=== PATIENT | male | born 1935 | race Caucasian/White ===

== ENCOUNTER 2025-02-07 09:03 | Outpatient (REF) | payer MEDICARE, SELFPAY ==
--- NOTE | ~2025-02-07 | XR_ITS ---
CLINICAL HISTORY: R05.3 - Chronic cough Chest Radiographs, 2 views Comparison: None available Findings: Cardiomegaly status post TAVR. Normal mediastinal contours. No pneumothorax. Question interstitial prominence with faint bilateral opacity. No pleural effusion. Normal upper abdomen. No acute fracture. Impression: Suspect mild pulmonary edema. Multifocal infection is considered less likely. This document has been electronically signed by: Rebecca Doll MD on 02/07/2025 22:16:50
== END 2025-02-07 09:04 | disposition home or self-care (01) ==
LOC: HO.XRAY 09:03
PROVIDERS: PCP Internal Medicine; Visit Provider Nurse Practitioner Family
DX: J44.9 Chronic obstructive pulmonary disease, unspecified (principal); R06.09 Other forms of dyspnea; R05.3 Chronic cough; I48.91 Unspecified atrial fibrillation; Z79.01 Long term (current) use of anticoagulants; Z87.891 Personal history of nicotine dependence
CPT/HCPCS: 71046; 99202

== ENCOUNTER 2025-02-07 09:03 | Outpatient (AMB) | payer MEDICARE, SELFPAY ==
--- OUTSIDE RECORDS SUMMARY | 2025-02-04 23:59 | XMS_ITS | Continuity of Care Document ---
Author Organization [facility] Adult Address [address] [place] [id number]- Care Team Providers Care Auricular Acupuncturist Name Role Phone Morgan WISE, [place] [facility] Primary Care Physician Encounter [facility] Date(s): 01/05/25 - 02/04/25 [facility] Adult [address] [place] [id number] Encounter Type: Triage Allergies, Adverse Reactions, Alerts Substance Criticality Severity Reaction Reaction Severity Status Latex Active Immunizations Given and Recorded Vaccine Date Status Refusal Reason zoster vaccine, inactivated 12/25/24 Recorded RSV vaccine preF3, recombinant 12/25/24 Recorded influenza virus vaccine, inactivated 06/21/24 Give n influenza virus vaccine, inactivated 05/29/23 Ascencion rded influenza virus vaccine, inactivated 1 05/21/22 Gi melissa influenza virus vaccine, inactivated 05/10/21 Give n influenza virus vaccine, inactivated 07/03/19 Ascencion rded influenza virus vaccine, inactivated 05/21/10 Ascencion rded tetanus/diphtheria/pertussis, acel(Tdap) 2 10/29/23 Given pneumococcal 20-valent conjugate vaccine 05/29/23 Recorded SARS-CoV-2(COVID-19)mRNA-LNP vac([id number]) 05/29/23 Recorded [id number] 12y+ bivalent booster vax 3 06/11/22 Given SARS-CoV-2 (COVID-19) mRNA BNT-162b2 vac 05/10/21 Given SARS-CoV-2 (COVID-19) mRNA BNT-162b2 vac 10/11/20 Recorded SARS-CoV-2 (COVID-19) mRNA BNT-162b2 vac 09/20/20 Recorded 1Result Comment: [id number] 2Result Comment: [facility] [id number] 3Result Comment: [facility]# [id number] Medications allopurinol 100 mg oral tablet 100 mg, By Mouth, Daily, # 60 tablet, Refills 0, Tot. Refills 0, Maintenance, 07/04/24 9:56:00 AM EST, Route to Pharmacy Electronically, [facility], Partial fill upon patient request if the prescription is for a schedule II opioid drug., 175, cm, 07/04/24 3:48:00 EST, Height, 105.1, kg, 06/20/24 23:26:00 EST, Dry Weight Start Date: 07/04/24 Stop Date: 09/02/24 Status: Ordered Quantity: 60.0 Unit: tablet Repeat number: 1 CPAP Machine See Instructions, # 1 each, Maintenance, PREVIOUS MACHINE NO LONGER FUNCTIONAL AUTO CPAP 10-12 CM H2O WITH HEATED HUMIDFICATION AND COMPLIANCE DATA AND RESIDUAL AHI FOLLOWED DX G47.33M ANA 99 RELIABLE RESPIRATORY [phone], 04/01/22 4:00:00 PM EDT, Supply Start Date: 04/01/22 Status: Ordered Quantity: 1.0 Unit: each Repeat number: 1 CPAP Equipment See Instructions, # 1 each, Refills 11, Tot. Refills 11, Maintenance, MASK TO FIT, TUBING, FILTERS,HEADGEAR, CHINSTRAP, WATER CHAMBER DX G47.33 ANA 99 RELIABLE RESPIRATORY [phone], 04/01/22 4:00:00 PM EDT, Supply Start Date: 04/01/22 Status: Ordered Quantity: 1.0 Unit: each Repeat number: 12 Eliquis 2.5 mg oral tablet 1 tablet = 2.5 mg, By Mouth, 2 times a day Start Date: 09/05/21 Status: Ordered Repeat number: 1 Fish Oil = 1,000 mg, By Mouth, Daily, 0 Refills, Maintenance, 02/27/21 3:16:00 PM EDT, Partial fill upon patient request if the prescription is for a schedule II opioid drug. Start Date: 02/27/21 Status: Ordered Repeat number: 1 metolazone 5 mg oral tablet 5 mg, 1, tablet, By Mouth, Daily, PRN, for weight gain >3 Lbs in a day, Refills 0, Maintenance, Other, 01/27/24 11:30:00 AM EDT, Partial fill upon patient request if the prescription is for a schedule II opioid drug. Start Date: 01/27/24 Status: Ordered Repeat number: 1 Metoprolol Succinate ER 50 mg oral tablet, extended release 2 tablet = 100 mg, By Mouth, Daily Start Date: 02/27/21 Status: Ordered Repeat number: 1 Multivitamin 1 tablet, By Mouth, Daily, 0 Refills, Maintenance, 02/27/21 3:16:00 PM EDT, Partial fill upon patient request if the prescription is for a schedule II opioid drug. Start Date: 02/27/21 Status: Ordered Repeat number: 1 simvastatin 20 mg oral tablet 20 mg, 1, tablet, By Mouth, Daily at bedtime, # 90 tablet, Refills 1, Tot. Refills 1, Maintenance, 08/17/24 10:44:00 AM EST, Route to Pharmacy Electronically, [facility] #[id number], Partial fill upon patient request if the prescription is for a schedule II opioid drug., 175, cm, 07/21/24 8:13:00 EST, Height, 105.1, kg, 06/20/24 23:26:00 EST, Dry Weight Start Date: 08/17/24 Stop Date: 02/13/25 Status: Ordered Quantity: 90.0 Unit: tablet Repeat number: 2 terazosin 1 mg oral capsule 1 mg, 1, capsule, By Mouth, Daily at bedtime, Refills 0, Maintenance, 01/25/22 1:58:00 PM EDT, Partial fill upon patient request if the prescription is for a schedule II opioid drug. Start Date: 01/25/22 Status: Ordered Repeat number: 1 torsemide 20 mg oral tablet 2 tablet = 40 mg, By Mouth, 2 times a day, 0 Refills, Maintenance, 06/21/24 3:24:00 PM EST, Partialfill upon patient request if the prescription is for a schedule II opioid drug. Start Date: 06/21/24 Status: Ordered Repeat number: 1 Vitamin C = 250 mg, By Mouth, Daily, 0 Refills, Maintenance, 02/27/21 3:16:00 PM EDT, Partial fill upon patient request if the prescription is for a schedule II opioid drug. Start Date: 02/27/21 Status: Ordered Repeat number: 1 Vitamin D3 oral tablet 1 tablet = 10 mcg, By Mouth, Daily, 0 Refills, Maintenance, 10/20/24 12:13:00 PM EDT, Partial fill upon patient request if the prescription is for a schedule II opioid drug. Start Date: 10/20/24 Status: Ordered Repeat number: 1 Walker See Instructions, # 1 each, Maintenance, USE DIRECTED. 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 Sex Sex Representation Male (finding) Patient Care team information Care Team Personnel Name: Azul Rodriguez RN Position: [facility] makeup artistry instructor Member Role: Investor Relations Coordinator Name: Becki Meredith RN Position: [facility] SN RN Member Role: Primary Care Nurse Name: Analy Gupta RN Position: [facility] RN Member Role: Primary Care Nurse Name: Cheryl Morgan MD Position: [facility] Renal MD Member Role: Lifetime Consulting Physician Address: [address] [place] [address] [address] [facility] [place] [address]- [employer]Lo: Name: Elan Dubois RN Position: S RN Member Role: Primary Care Nurse Name: Jamee Izaguirre RN Position: S RN Member Role: Primary Care Nurse Name: Misa Schuster RN Position: S RN Member Role: Primary Care Nurse Name: Flaivo Silva RN Position: S RN Member Role: Primary Care Nurse Name: Beck Erickson RN Position: [facility] RN Member Role: Primary Care Nurse Name: Luis GUERRERO, Anthony Serrato Position: [facility] RN Member Role: Primary Care Nurse Name: Kusum Benitez RN Position: [facility] RN Member Role: Primary Care Nurse Name: Chelsy Mora MD Position: [facility] Physician - Primary Care Member Role: PCP Address: [address] [place] [phone] [id number]: Name: Jozef Whyte MD Position: [facility] Outreach Member Role: Lifetime Consulting Physician Address: [address] [facility] [place], [place] [address] Telecom: Name: Sami Patino MD Position: [facility] Renal MD Member Role: Lifetime Consulting Physician Address: [address] [facility] [address] [facility] [address] Telecom: Name: Jennifer Anderson RN Position: [facility] RN Member Role: Primary Care Nurse Name: Serina Myrick Position: [facility] Hospital Integration Project Manager Member Role: Primary Care Nurse Name: Aleksandar Eric RN Position: [facility] RN Member Role: Primary Care Nurse Name: Dewayne Garcias MD Position: [facility] Renal MD Member Role: Lifetime Consulting Physician Address: [address] [facility] [place], [place] [address] Telecom: Name: Patty Walker RN Position: [facility] RN Member Role: Primary Care Nurse Name: Holly Roca RN Position: [facility] RN Member Role: Primary Care Nurse Name: Nneka Steel RN Position: [facility] RN Member Role: Primary Care Nurse Name: Patricia Gonzalez RN Position: [facility] RN Member Role: Primary Care Nurse Care Team Related Persons Name: MAGDACHAMP ORTIZ Name: DOM HARDY Insurance Providers Guarantor name: SANDY Health Plan Information #: 1 Payer: MEDICARE B Payer Identifier: SANDY Member Number: [id number] Group Number: SANDY Subscriber Identifier: [id number] Relationship to Subscriber: self Coverage Type: NA Coverage Verification Date: SANDY Telecom: NA Address: Health Plan Information #: 2 Payer: MEDEX SECONDARY ONLY Payer Identifier: SANDY Member Number: [id number] Group Number: SANDY Subscriber Identifier: [id number] Relationship to Subscriber: self Coverage Type: Medicare Other Coverage Verification Date: SANDY Telecom: NA Address:
--- NOTE | 2025-02-07 09:13 | A.OFFVIS_ITS ---
Vital Signs 02/07/25 09:18 Height 5 ft 8 in Weight 248 lb 0.321 oz BMI 37.7 BP 110/70 Blood Pressure Location Rt brachial Position Sitting Pulse 125 H Pulse Source Pulse Oximeter Pulse Oximetry (%) 97 Oxygen Delivery Method Room Air Intake Visit Reasons: Dyspnea on Exertion Medical Assisting Instructor Required: No Allergies No Known Allergies Allergy (Verified 02/07/25 09:21) HPI HPI Dyspnea on Exertion: Details: Aubrey is a pleasant 89-year-old male, former 10 pack year smoker, quit 30+ years ago with underlying hypertension, hyperlipidemia, severe aortic stenosis status post TAVR 2020, AMANDA on CPAP (PCP), atrial fibrillation on Eliquis and history of chronic hypoxic respiratory failure secondary to CHF 2023. He was referred by [facility] for pulmonary evaluation for ongoing dyspnea. He was recently started on metalozone in addition to lasix and has noticed a decreasing trend in weight, however dyspnea continues as well as occasional dry cough. He reports symptoms have progressively worsened over the last few years. He denies prior h/o asthma/ COPD however recently had PFT which revealed mild obstructive with moderate restrictive defect and moderate decrease in diffusion capacity. Prior CXR 06/2024 revealed perihilar interstitial opacity consistent with mild edema. He denies any history of recurrent respiratory infections, such as bronchitis or pneumonia, and has never required home oxygen therapy. He denies any occupational exposures. He denies any seasonal allergies. He denies any pertinent family history. ON LICENSE OF [facility] Social History (Updated 02/07/25 @ 09:26 by Nori Whitehead [facility]) Patient Tobacco Use Status: Former Tobacco user Review of Systems Const Denies chills, Denies excessive sweating, Denies fever(s), Denies headache(s) and Denies night sweats Eyes Denies dry eyes, Denies irritation and Denies itchy eyes ENT Reports Normal hearing present, Denies headache(s), Denies nasal congestion, Denies nasal discharge, Denies post nasal drip and Denies sore throat Card Denies chest pain, Denies chest pain at rest, Denies chest pain with activity, Denies claudication, Denies leg edema, Denies orthopnea and Denies paroxysmal nocturnal dyspnea Resp Denies chest congestion, Denies excessive phlegm production, Denies pain on inspiration, Denies pain with cough, Denies stridor and Denies wheezing Musc Denies myalgias Neuro Reports Normal hearing present and Denies headache(s) Endo Denies excessive sweating Brando/Lymph Denies lymphadenopathy Aller/Immun Denies itchy eyes, Denies seasonal rhinorrhea and Denies wheezing Physical Exam Vital Signs: Last Vital Signs Pulse 125 H 02/07/25 09:18 BP 110/70 02/07/25 09:18 Pulse Ox 97 02/07/25 09:18 Oxygen Delivery Method Room Air 02/07/25 09:18 BMI result Body Mass Index 37.7 Const General: cooperative, healthy appearing, comfortable, no acute distress, well developed and alert Nutritional Appearance: obese Orientation/consciousness: patient oriented x3 Limitations: no limitations HEENT Head: Yes normal to inspection, Yes normocephalic and Yes atraumatic Ears: hearing grossly normal bilaterally and external ears normal Eyes General: appearance normal, both eyes and all related structures Eyelids: Yes eyelids normal Sclerae: sclerae normal EOM: EOMs intact bilaterally Neck Neck: Yes normal visual inspection and Yes no lymphadenopathy Lymphatic: no lymphadenopathy noted Chest Chest palpation & inspection: normal inspection of the chest Resp Effort & Inspection: normal respiratory effort, able to speak in complete sentences, no audible wheezes, no cough, no stridor, not tachypneic, no tripod positioning and no use of accessory muscles Auscultation: clear to auscultation bilaterally Cardio Jugular venous distension: no JVD Rate: tachycardic Rhythm: abnormal rhythm Skin Other: warm, dry General skin exam: no rashes or lesions noted Neuro General: patient oriented x3 Cranial nerves: Yes Normal hearing present Cognition (Neuro): normal cognition Gait exam (Neuro): Normal gait present Extrem General: Yes normal to inspection, Yes capillary refill normal, Yes no clubbing, cyanosis or edema and Yes no pedal edema Psych Appearance: grossly normal and well kempt Speech and movement: Normal speech and movement present and Clear speech present Affect: normal affect Attitude: cooperative Thought process: Normal thought process present Thought content: Normal thought content present Insight: Good insight present (Psych) Judgement: Good judgement present (Psych) Results Reviewed Results Reviewed: RESULT: Chest Portable Chest Portable Reason: Shortness of Breath; Clinical Question(s): Pulmonary Edema COMPARISON: 06/24/2024 FINDINGS: LINES AND TUBES: None. LUNGS AND PLEURA: Low lung volumes with mild basilar atelectasis. Perihilar interstitial opacity consistent with mild edema. No definite pleural effusion. No pneumothorax. HEART, MEDIASTINUM AND IESHA: Heart is at the upper limits of normal for size. Normal mediastinal and hilar contour. BONES AND SOFT TISSUES: No acute abnormality. IMPRESSION: Perihilar interstitial opacity consistent with mild edema. WSN: [id number] Ordering Physician: Sherry Sibley Reason For Exam Shortness of Breath Signature Line Dictated By: Lm Estrada MD Dictated Date/Time: 06/26/24 11:33 p Reviewed By: Lm Estrada MD Signed By: Lm Estrada MD Signed Date/Time: 06/26/24 11:33 pm Transcribed By: DANIELA Assessment & Plan Assessment & Plan (1) COPD (chronic obstructive pulmonary disease): Code(s): J44.9 - Chronic obstructive pulmonary disease, unspecified Category: Medical (2) Chronic cough: Code(s): R05.3 - Chronic cough Category: Medical Plan Reviewed PFT with Aubrey revealing mild obstructive defect, will start on ICS. Discussed importance of good oral hygiene to prevent thrush. Due to the patient's history of atrial fibrillation and elevated heart rate, a combination inhaler with a long-acting beta-agonist was avoided to prevent potential exacerbation of cardiac symptoms. A repeat chest X-ray is recommended to assess current lung status and ensure resolution of previously noted fluid accumulation. On examination patient with irregular rate and tachycardic, asymptomatic however reached out to PVC who will contact patient today to triage and further assess patient. Reviewed with daughter, via telephone after Aubrey left office, if PVC does not contact today, consider emergent evaluation at the ED. All questions were answered and patient is in agreement of plan. Will follow up in 6-8 weeks or sooner if needed. Orders: Orders XR chest 2V Today R05.3 - Chronic cough Medications: New fluticasone furoate 100 mcg/actuation 1 inh inhalation DAILY 30 ea 3RF Coding Level of Care Code New Pt Level 4 (94485) Diagnoses COPD (chronic obstructive pulmonary disease) J44.9 Chronic cough R05.3
[2025-02-07 09:18] VITALS: BP 110/70; PULSE 125; O2SAT 97; BMI 37.7
--- OUTSIDE RECORDS SUMMARY | 2025-02-07 09:25 | XMS_ITS | Continuity of Care Document ---
Author Organization [facility]. If a dditional information is needed, contact Health Information Management at [phone] Address [address] [place] [address] Phone Care Team Providers Care Yard Jockey Name Role Phone Unavailable Unavailable Unavailable Unavailable Unavailable Unavailable Unavailable Unavailable Unavailable Unavailable Unavailable Unavailable Unavailable Unavailable Unavailable Problems Pneumonia Onset:22-Oct-2022 Ashish Estrada MD Functional Status Functional finding 22-Oct-2022 Allergies and Adverse Reactions latex(Allergy) Onset: 21-Oct-2022 Reaction:RASH Medications azithromycin 500 MG Oral Tab let;500 MILLIGRAM ORAL DAILY Start:24-Oct-2022 Comments:500 MG PO DAILY cefuroxime 500 MG Oral Table t;500 MILLIGRAM ORAL BID Start:24-Oct-2022 Comments:500 MG PO BID allopurinol 300 MG Oral Tabl et [Zyloprim];300 MILLIGRAM ORAL DAILY Start:22-Oct-2022 Comments:300 MG PO DAILY simvastatin 20 MG Oral Table t [Zocor];20 MILLIGRAM ORAL BEDTIME Start:22-Oct-2022 Comments:20 MG PO BEDTIME apixaban 2.5 MG Oral Tablet [Eliquis];2.5 MILLIGRAM ORAL BID Start:22-Oct-2022 Comments:2.5 MG PO BID furosemide 40 MG Oral Tablet ;40 MILLIGRAM ORAL DAILY Start:22-Oct-2022 Comments:40 MG PO DAILY amLODIPine 5 MG Oral Tablet; 5 MILLIGRAM ORAL BID Start:22-Oct-2022 Comments:5 MG PO BID terazosin 1 MG Oral Capsule; 1 MILLIGRAM ORAL BEDTIME Start:22-Oct-2022 Comments:1 MG PO BEDTIME clopidogrel 75 MG Oral Table t;75 MILLIGRAM ORAL DAILY Start:22-Oct-2022 Status:Discontinued Comments:75 MG PO DAILY lisinopril 40 MG Oral Tablet [Zestril];30 MILLIGRAM ORAL DAILY Start:22-Oct-2022 Comments:30 MG PO DAILY 24 HR metoprolol succinate 5 0 MG Extended Release Oral Tablet [Toprol];75 MILLIGRAM ORAL DAILY Start:22-Oct-2022 Comments:75 MG PO DAILY Social History Smoking Status Ex-smoker Recorded: 22-Oct-2022
--- OUTSIDE RECORDS SUMMARY | 2025-02-07 09:26 | XMS_ITS | Clinical Summary ---
Author Organization [facility] Address [address] [place] [phone] Phone Care Team Providers Care Polishing Machine Tender Name Role Phone Chelsy Mora MD Primary Care Provider Allergies Active Allergy Reactions Criticality Noted Date Comments Latex 12/03/2021 Medications apixaban (Eliquis) 2.5 MG tablet Take 2.5 mg by mouth in the morning and 2.5 mg in the evening. Active terazosin (HYTRIN) 1 MG capsule Take 1 mg by mouth at bed time 06/10/2022 Active metoprolol succinate XL (TOPROL XL) 50 MG 24 hr tablet TAKE 1.5 TABLETS BY MOUTH EVERY DAY 135 tablet 4 08/05/2023 Active simvastatin (ZOCOR) 20 MG tablet TAKE 1 TABLET BY MOUTH EVERY DAY IN THE EVENING 90 tablet 6 02/29/2024 Active amLODIPine (NORVASC) 5 MG tabletIndicatio ns:Stage 3 chronic kidney disease, not otherwise specified (HCC),Hypertens ion Take 1 tablet (5 mg total) by mouth 1 (one) time each day 90 tablet 10/20/2024 Active acetaminophen (TYLENOL) 500 MG tablet Take 500 mg by mouth every 6 (six) hours if needed for mild pain Active allopurinol (ZYLOPRIM) 100 MG tablet Take 100 mg by mouth 1 (one) time each day Active Quincy-3 Fatty Acids (Fish Oil) 1000 MG capsule delayed-release Take 1,000 mg by mouth 1 (one) time each day Active Ascorbic Acid (vitamin C) 500 MG tablet Take 500 mg by mouth 1 (one) time each day Active Cholecalciferol (Vitamin D) 25 MCG (1000 UT) tablet Take by mouth Active metOLazone 5 MG tabletIndicatio ns:Edema Take 5 mg by mouth 1 (one) time each day if needed (for weight gain >3 pounds in a day) Active torsemide (DEMADEX) 20 MG tablet TAKE 2 TABLETS (40 MG TOTAL) BY MOUTH IN THE MORNING AND 2 TABLETS (40 MG TOTAL) IN THE EVENING. 360 tablet 1 11/22/2024 Active Active Problems Problem Noted Date Diagnosed Date Acute kidney failure with tubular necrosis 11/06 Secondary hyperparathyroidism of renal origin Vitamin D deficiency, not otherwise specified Dyslipidemia 12/03/2021 Gout 12/03/2021 Obese class II 12/03/2021 Obstructive sleep apnea syndrome 12/03/2021 Prediabetes 12/03/2021 Proteinuria 12/03/2021 Severe aortic valve stenosis 12/03/2021 Hypertension 11/16/2021 Stage 3 chronic kidney disease, not otherwise sp ecified 11/16/2021 Overview (06/24/2022): Per chart review meets GFR criteria Congestive heart failure 11/16/2021 Paroxysmal atrial fibrillation 11/16/2021 Severe obesity 11/16/2021 Encounters Date Type Department Care Team Description 11/19/2024 Refill [facility] [address] [place] [address] Leonides Morgan MD from Last 3 Months Immunizations Immunization Administration Dates Next Due Influenza Split High Dose Preservative Free IM 04/04/2014 Influenza, Unspecified 05/29/2023,05/21/2022 Pfizer SARS-COV-2 05/29/2023, 2,05/10/2021,2020,09/20/2020 Pneumococcal Conjugate 05/29/2023 SARS-CoV-2, Unspecified 06/11/2022 Social History Tobacco Use Types Packs/Day Years Used Date Smoking Tobacco: Never Smokeless Tobacco: Former Tobacco Cessation:Counseling Given: Not Answered Alcohol Use Standard Drinks/Week Comments No 0 (1 standard drink = 0.6 oz pur e alcohol) Sex and Gender Information Value Date Recorded Sex Assigned at Not on file Legal Sex Male 5:06 PM EST Gender Identity Not on file Sexual Orientation Not on file Last Filed Vital Signs Vital Sign Reading Time Taken Comments Blood Pressure 116/70 10/26/2024 11:09 AM EDT Pulse 87 10/26/2024 11:09 AM EDT Temperature - - Respiratory Rate - - Oxygen Saturation 95% 08/25/2023 2:28 PM EST Inhaled Oxygen Concentration - - Weight 110 kg (242 lb) 10/26/2024 11:09 AM EDT Height 172.7 cm (5' 8 ) 12/03/2021 2:31 PM EDT Body Mass Index 36.8 12/03/2021 2:31 PM EDT Plan of Treatment Upcoming Encounters Date Type Department Care Team (Late st Contact Info) Description 03/04/2025 Orders Only [facility] [address] [phone] Tricia Eric ARNP [address] [phone] Stage 3 chronic kidney disease, not otherwise specified (HCC); Hypertension; Proteinuria, not otherwise specified; Vitamin D deficiency, not otherwise specified 04/27/2025 1:30 PM EDT Office Visit [facility] [address] [phone] Leonides Morgan MD [address] [address] Health Maintenance Due Date Last Done Comments Pneumococcal Vaccine: 50+ Years (1 of 2 - PCV) 11/01/1954 05/29/2023 Influenza Vaccine (#1) 2025 3, 05/21/2022, 04/04/2014 Pneumococcal Vaccine: Peds (0 to 5 Years) and At-Risk Patients (6 to 49 Years) Discontinued 05/29/2023 Hepatitis B Vaccine Aged Out No longe r eligible based on patient's age to complete this topic Insurance Medicare [facility] Medicare [facility] Care Teams Polishing Machine Tender Relationship Specialty Start Date End Date Chelsy Mora MD [address] PCP - General Internal Medicine 12/03/21
--- OUTSIDE RECORDS SUMMARY | 2025-02-07 09:26 | XMS_ITS | Encounter Summary ---
Author Organization [facility] Address [address] [place] [address] Care Team Providers Care Weaver Axminster Name Role Phone Chelsy Mora MD Primary Care Provider Encounter Details Date Type Department Care Team (Late st Contact Info) Description 07/06/2024 Lab Requisition [facility] - Main Lab [address] [facility] [place] [address] Allison Mitchell MD [address] [place] [id number] Chronic kidney disease, stage 3 unspecified (CMS/HCC V24, CMS/HCC V28); Other retirement (current) drug therapy; Gout, unspecified Social History Tobacco Use Types Packs/Day Years Used Date Smoking Tobacco: Former Cigarettes Smokeless Tobacco: Never Alcohol Use Standard Drinks/Week Comments Not Currently 0 (1 standard drink = 0.6 oz pur e alcohol) Sex and Gender Information Value Date Recorded Sex Assigned at Not on file Legal Sex Male 8:20 AM EST Gender Identity Not on file Sexual Orientation Not on file documented as of this encounter Plan of Treatment Not on file documented as of this encounter Procedures Procedure Name Priority Date/Time Associated Diagnosis Comments COMPLETE BLOOD COUNT Routine 07/06/2024 5:13 AM EST Chronic kidney disease, stage 3 unspecified (CMS/HCC) Other retirement (current) drug therapy Gout, unspecified HEMOGLOBIN A1C Routine 07/06/2024 5:13 AM EST Chronic kidney disease, stage 3 unspecified (CMS/HCC) Other retirement (current) drug therapy Gout, unspecified BASIC METABOLIC PANEL Routine 07/06/2024 5:13 AM EST Chronic kidney disease, stage 3 unspecified (CMS/HCC) Other retirement (current) drug therapy Gout, unspecified documented in this encounter Results * (ABNORMAL) Hemoglobin A1c (07/06/2024 5:13 AM EST) Hemoglobin A1C 6.5(H) <6.5 % LAB CHEMISTRY METHOD 07/06/2024 12:37 PM EST [facility] Mean Bld Glu Estim. 140 mg/dL LAB CHEMISTRY METHOD 07/06/2024 12:37 PM [facility] Blood Venous blood specimen / Unknown Venipuncture / Unknown 07/06/2024 5:13 AM EST 07/06/2024 9:29 AM EST us Allison Mitchell MD LAB BLOOD ORDERABLES Final Resu lt [facility] [address] [place] [address], [place] [phone] * (ABNORMAL) Basic metabolic panel (07/06/2024 5:13 AM EST) Pathologist [facility] Sodium 144 133 - 145 mmol/L LAB CHEMISTRY METHOD 07/06/2024 12:39 PM [facility] Potassium 4.0 3.5 - 5.5 mmol/L LAB CHEMISTRY METHOD 07/06/2024 12:39 PM [facility] Chloride 106 96 - 110 mmol/L LAB CHEMISTRY METHOD 07/06/2024 12:39 PM [facility] CO2 29 21 - 32 mmol/L LAB CHEMISTRY METHOD 07/06/2024 12:39 PM [facility] Anion Gap 9 3 - 11 LAB CHEMISTRY METHOD 07/06/2024 12:39 PM [facility] Glucose 124(H) 70 - 100 mg/dL LAB CHEMISTRY METHOD 07/06/2024 12:39 PM EST [facility] BUN 73(H) 5 - 25 mg/dL LAB CHEMISTRY METHOD 07/06/2024 12:39 PM [facility] Creatinine 2.69(H) 0.70 - 1.30 mg/dL LAB CHEMISTRY METHOD 07/06/2024 12:39 PM [facility] eGFR 22(L) >=60 mL/min/1. 73m2 LAB CHEMISTRY METHOD 07/06/2024 12:39 PM EST [facility] Comment:Calculation based on the Chronic Kidney Disease Epidemiology Collaboration (CKD-EPI) equation refit without adjustment for race. BUN/Creatinine Ratio 27.1 LAB CHEMISTRY METHOD 07/06/2024 12:39 PM [facility] Calcium 8.8 8.5 - 10.5 mg/dL LAB CHEMISTRY METHOD 07/06/2024 12:39 PM [facility] Blood Venous blood specimen / Unknown Venipuncture / Unknown 07/06/2024 5:13 AM EST 07/06/2024 9:29 AM EST us Allison Mitchell MD LAB BLOOD ORDERABLES Final Resu lt [facility] [address] [place] [address], * (ABNORMAL) Complete blood count (07/06/2024 5:13 AM EST) WBC 7.9 4.8 - 10.8 K/mcL LAB HEMETOLOGY METHOD 07/06/2024 9:56 AM EST [facility] RBC 3.20(L) 4.50 - 5.50 M/mcL LAB HEMETOLOGY METHOD 07/06/2024 9:56 AM EST [facility] Hemoglobin 9.1(L) 13.5 - 17.5 g/dL LAB HEMETOLOGY METHOD 07/06/2024 9:56 AM EST [facility] Hematocrit 30.6(L) 42.0 - 54.0 % LAB HEMETOLOGY METHOD 07/06/2024 9:56 AM [facility] MCV 95.0 79.0 - 98.0 FL LAB HEMETOLOGY METHOD 07/06/2024 9:56 AM [facility] MCH 28.3 27.0 - 32.0 pcg LAB HEMETOLOGY METHOD 07/06/2024 9:56 AM EST [facility] MCHC 29.7(L) 32.0 - 37.0 g/dL LAB HEMETOLOGY METHOD 07/06/2024 9:56 AM [facility] RDW 17.6(H) 11.0 - 15.0 % LAB HEMETOLOGY METHOD 07/06/2024 9:56 AM [facility] Platelets 166 130 - 400 K/mcL LAB HEMETOLOGY METHOD 07/06/2024 9:56 AM EST [facility] MPV 13.2(H) 7.0 - 11.0 FL LAB HEMETOLOGY METHOD 07/06/2024 9:56 AM [facility] NRBC 0.0 <1.0 % LAB HEMETOLOGY METHOD 07/06/2024 9:56 AM [facility] NRBC Absolute 0.00 <0.10 K/mcL LAB HEMETOLOGY METHOD 07/06/2024 9:56 AM [facility] Blood Venous blood specimen / Unknown Venipuncture / Unknown 07/06/2024 5:13 AM EST 07/06/2024 9:29 AM EST us Allison Mitchell MD LAB BLOOD ORDERABLES Final Resu lt [facility] [address] [place] [address], [place] [phone] documented in this encounter Visit Diagnoses Diagnosis Chronic kidney disease, stage 3 unspecified (CMS/HCC V24, CMS/HCC V28) Other retirement (current) drug therapy Gout, unspecified documented in this encounter Care Teams Weaver Axminster Relationship Specialty Start Date End Date Chelsy Mora MD [address] [place] [address] PCP - General Internal Medicine 03/20/21 documented as of this encounter
== END 2025-02-07 09:48 | disposition home or self-care (01) ==
LOC: HO.HPS 09:04
PROVIDERS: PCP Internal Medicine; Visit Provider Nurse Practitioner Family
DX: J44.9 Chronic obstructive pulmonary disease, unspecified (principal); R05.3 Chronic cough
CPT/HCPCS: 99204

== ENCOUNTER → 2025-02-07 10:02 | Outpatient (BNV) | payer MEDICARE, SELFPAY | PROVIDERS: PCP Internal Medicine; Visit Provider Radiology Diagnostic Radiology | DX: R05.9 Cough, unspecified (principal) | CPT/HCPCS: 71046 ==

== ENCOUNTER 2025-03-14 11:17 | Outpatient (REF) | payer MEDICARE, SELFPAY ==
--- NOTE | ~2025-03-14 | XR_ITS ---
EXAMINATION: XR CHEST 2 VIEWS HISTORY: R05.3 - Chronic cough COMPARISON: Comparison is made with the prior examination dated 02/07/2025. FINDINGS: PA and lateral views of the chest are submitted. Again seen is prominence of the pulmonary vasculature, suggestive of congestion. There is no pleural effusion or pneumothorax. The heart is normal in size. The patient is status post aortic valve replacement. There is degenerative disc disease of the spine. XR/XR chest 2V IMPRESSION: Mild pulmonary vascular congestion. Electronically signed by: Henrique Barker MD 03/14/2025 11:36 AM EDT
--- OUTSIDE RECORDS SUMMARY | 2025-03-14 11:58 | XMS_ITS | Encounter Summary ---
Author Organization [facility] Address [address] [facility] [address] [place] [address] Phone Care Team Providers Care Workforce Specialist Name Role Phone Chelsy Mora MD Primary Care Provider Reason for Visit * Reason Comments Med Refill Encounter Details Date Type Department Care Team (Late Contact Info) Description 03/09/2025 Refill [facility] [address] [place] [address] Craig Hurtado MD [facility] [address] [address] Social History Tobacco Use Types Packs/Day Years Used Date Smoking Tobacco: Never Smokeless Tobacco: Former Alcohol Use Standard Drinks/Week Comments No 0 (1 standard drink = 0.6 oz pur e alcohol) Sex and Gender Information Value Date Recorded Sex Assigned at Not on file Legal Sex Male 5:06 PM EST Gender Identity Not on file Sexual Orientation Not on file documented as of this encounter Plan of Treatment Upcoming Encounters Date Type Department Care Team (Late st Contact Info) Description 04/27/2025 1:30 PM EDT Office [facility] [address] [address] Leonides Morgan MD [address] [address] documented as of this encounter Visit Diagnoses Not on filedocumented in this encounter Care Teams Workforce Specialist Relationship Specialty Start Date End Date Chelsy Mora MD [address] PCP - General Internal Medicine 12/03/21 documented as of this encounter
--- OUTSIDE RECORDS SUMMARY | 2025-03-14 11:58 | XMS_ITS | Encounter Summary ---
Author Organization [facility] Address [address] [place] [address] Care Team Providers Care Padder Cushion Name Role Phone Chelsy Mora MD Primary Care Provider Encounter Details Date Type Department Care Team (Late st Contact Info) Description 07/06/2024 Lab Requisition [facility] - Main Lab [address] [facility] [place] [address] Allison Mitchell MD [address] [place] [id number] Chronic kidney disease, stage 3 unspecified (CMS/HCC V24, CMS/HCC V28); Other care home (current) drug therapy; Gout, unspecified Social History [...] kidney disease, stage 3 unspecified (CMS/HCC) Other care home (current) drug therapy Gout, unspecified HEMOGLOBIN A1C Routine 07/06/2024 5:13 AM EST Chronic kidney disease, stage 3 unspecified (CMS/HCC) 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 140 mg/dL LAB CHEMISTRY METHOD 07/06/2024 12:37 PM [facility] Blood Venous blood specimen / Unknown Venipuncture / Unknown 07/06/2024 5:13 AM EST 07/06/2024 9:29 AM EST us Allison Mitchell MD LAB BLOOD ORDERABLES Final Resu lt [facility] [address] [place] [address], [place] [phone] * (ABNORMAL) Basic metabolic panel (07/06/2024 5:13 AM EST) Pathologist [facility] Sodium 144 133 - 145 mmol/L LAB CHEMISTRY METHOD 07/06/2024 12:39 PM [facility] Potassium 4.0 3.5 - 5.5 mmol/L LAB CHEMISTRY METHOD 07/06/2024 12:39 PM [facility] Chloride 106 96 - 110 mmol/L LAB CHEMISTRY METHOD 07/06/2024 12:39 PM [facility] CO2 29 21 - 32 mmol/L LAB CHEMISTRY METHOD 07/06/2024 12:39 PM [facility] Anion Gap 9 3 - 11 LAB CHEMISTRY METHOD 07/06/2024 12:39 PM [facility] Glucose 124(H) 70 - 100 mg/dL LAB CHEMISTRY METHOD 07/06/2024 12:39 PM EST [facility] BUN 73(H) 5 - 25 mg/dL LAB CHEMISTRY METHOD 07/06/2024 12:39 PM [facility] Creatinine 2.69(H) 0.70 - 1.30 mg/dL LAB CHEMISTRY METHOD 07/06/2024 12:39 PM [facility] eGFR 22(L) >=60 mL/min/1. 73m2 LAB CHEMISTRY METHOD 07/06/2024 12:39 PM EST [facility] Comment:Calculation based on the Chronic Kidney Disease Epidemiology Collaboration (CKD-EPI) equation refit without adjustment for race. BUN/Creatinine Ratio 27.1 LAB CHEMISTRY METHOD 07/06/2024 12:39 PM [facility] Calcium 8.8 8.5 - 10.5 mg/dL LAB CHEMISTRY METHOD 07/06/2024 12:39 PM [facility] Blood Venous blood specimen / Unknown Venipuncture / Unknown 07/06/2024 5:13 AM EST 07/06/2024 9:29 AM EST us Allison Mitchell MD LAB BLOOD ORDERABLES Final Resu lt [facility] [address] [place] [address], * (ABNORMAL) Complete blood count (07/06/2024 5:13 AM EST) WBC 7.9 4.8 - 10.8 K/mcL LAB HEMETOLOGY METHOD 07/06/2024 9:56 AM EST [facility] RBC 3.20(L) 4.50 - 5.50 M/mcL LAB HEMETOLOGY METHOD 07/06/2024 9:56 AM EST [facility] Hemoglobin 9.1(L) 13.5 - 17.5 g/dL LAB HEMETOLOGY METHOD 07/06/2024 9:56 AM EST [facility] Hematocrit 30.6(L) 42.0 - 54.0 % LAB HEMETOLOGY METHOD 07/06/2024 9:56 AM [facility] MCV 95.0 79.0 - 98.0 FL LAB HEMETOLOGY METHOD 07/06/2024 9:56 AM [facility] MCH 28.3 27.0 - 32.0 pcg LAB HEMETOLOGY METHOD 07/06/2024 9:56 AM EST [facility] MCHC 29.7(L) 32.0 - 37.0 g/dL LAB HEMETOLOGY METHOD 07/06/2024 9:56 AM [facility] RDW 17.6(H) 11.0 - 15.0 % LAB HEMETOLOGY METHOD 07/06/2024 9:56 AM [facility] Platelets 166 130 - 400 K/mcL LAB HEMETOLOGY METHOD 07/06/2024 9:56 AM EST [facility] MPV 13.2(H) 7.0 - 11.0 FL LAB HEMETOLOGY METHOD 07/06/2024 9:56 AM [facility] NRBC 0.0 <1.0 % LAB HEMETOLOGY METHOD 07/06/2024 9:56 AM [facility] NRBC Absolute 0.00 <0.10 K/mcL LAB HEMETOLOGY METHOD 07/06/2024 9:56 AM [facility] Blood Venous blood specimen / Unknown Venipuncture / Unknown 07/06/2024 5:13 AM EST 07/06/2024 9:29 AM EST us Allison Mitchell MD LAB BLOOD ORDERABLES Final Resu lt [facility] [address] [place] [address], [place] [phone] documented in this encounter Visit Diagnoses Diagnosis Chronic kidney disease, stage 3 unspecified (CMS/HCC V24, CMS/HCC V28) Other care home (current) drug therapy Gout, unspecified documented in this encounter Care Teams Padder Cushion Relationship Specialty Start Date End Date Chelsy Mora MD [address] [place] [address] PCP - General Internal Medicine 03/20/21 documented as of this encounter
== END 2025-03-14 11:18 | disposition home or self-care (01) ==
LOC: HO.XRAY 11:17
PROVIDERS: PCP Internal Medicine; Visit Provider Nurse Practitioner Family
DX: R05.3 Chronic cough (principal)
CPT/HCPCS: 71046

== ENCOUNTER → 2025-03-14 11:22 | Outpatient (BNV) | payer MEDICARE, SELFPAY | PROVIDERS: PCP Internal Medicine; Visit Provider Radiology Diagnostic Radiology | DX: R05.9 Cough, unspecified (principal) | CPT/HCPCS: 71046 ==

== ENCOUNTER 2025-04-08 11:03 | Outpatient (AMB) | payer MEDICARE, SELFPAY ==
[2025-04-08 11:06] VITALS: BP 130/64; PULSE 83; O2SAT 96; BMI 38.5
--- NOTE | 2025-04-08 11:06 | A.OFFVIS_ITS ---
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 He was referred by [facility] for pulmonary evaluation for ongoing dyspnea. He was recently started on metalozone in addition to lasix and has noticed a decreasing trend in weight, however dyspnea continues as well as occasional dry cough. At the last visit he was started on Arnuity, avoiding LABA component due to cardiac history and has had resolution of cough. He continues to report dyspnea with CXR revealing pulmonary congestion and not taking diuretics consistently. He is following with cardiology and has an upcoming appt in the near future. [facility] Social History Patient Tobacco Use Status: Former Tobacco user Review of Systems Const Denies chills, Denies excessive sweating, Denies fever(s), Denies headache(s) and Denies night sweats Eyes Denies dry eyes, Denies irritation and Denies itchy eyes ENT Reports Normal hearing present, Denies headache(s), Denies nasal congestion, Denies nasal discharge, Denies post nasal drip and Denies sore throat Card Denies chest pain, Denies chest pain at rest, Denies chest pain with activity, Denies claudication, Denies leg edema, Denies orthopnea and Denies paroxysmal nocturnal dyspnea Resp Denies chest congestion, Denies excessive phlegm production, Denies pain on inspiration, Denies pain with cough, Denies stridor and Denies wheezing Musc Denies myalgias Neuro Reports Normal hearing present and Denies headache(s) Endo Denies excessive sweating Brando/Lymph Denies lymphadenopathy Aller/Immun Denies itchy eyes, Denies seasonal rhinorrhea and Denies wheezing Physical Exam Vital Signs: Last Vital Signs Pulse 83 04/08/25 11:06 BP 130/64 04/08/25 11:06 Pulse Ox 96 04/08/25 11:06 Oxygen Delivery Method Room Air 04/08/25 11:06 BMI result Body Mass Index 38.5 Const General: cooperative, healthy appearing, comfortable, no acute distress, well developed and alert Nutritional Appearance: obese Orientation/consciousness: patient oriented x3 Limitations: no limitations HEENT Head: Yes normal to inspection, Yes normocephalic and Yes atraumatic Ears: hearing grossly normal bilaterally and external ears normal Eyes General: appearance normal, both eyes and all related structures Eyelids: Yes eyelids normal Sclerae: sclerae normal EOM: EOMs intact bilaterally Neck Neck: Yes normal visual inspection and Yes no lymphadenopathy Lymphatic: no lymphadenopathy noted Chest Chest palpation & inspection: normal inspection of the chest Resp Other: faint bibasilar inspiratory crackles Effort & Inspection: normal respiratory effort, able to speak in complete sentences, no audible wheezes, no cough, no stridor, not tachypneic, no tripod positioning and no use of accessory muscles Cardio Jugular venous distension: no JVD Rate: tachycardic Rhythm: abnormal rhythm Skin Other: warm, dry General skin exam: no rashes or lesions noted Neuro General: patient oriented x3 Cranial nerves: Yes Normal hearing present Cognition (Neuro): normal cognition Gait exam (Neuro): Normal gait present Extrem General: Yes normal to inspection, Yes capillary refill normal, Yes no clubbing, cyanosis or edema and Yes no pedal edema Psych Appearance: grossly normal and well kempt Speech and movement: Normal speech and movement present and Clear speech present Affect: normal affect Attitude: cooperative Thought process: Normal thought process present Thought content: Normal thought content present Insight: Good insight present (Psych) Judgement: Good judgement present (Psych) Results Reviewed Results Reviewed: [address] [address] XRay Report Signed Patient: Aubrey Celis MR#: [id number] : 1935 Acct:[id number] Age/Sex: 89 / M ADM Date: 03/14/25 Loc: [facility] Attending Dr: Megan Benítez NP Ordering Physician: Megan Benítez NP Date of Service: 03/14/25 Procedure(s): XR chest 2V Accession Number(s): [id number] cc: Chelsy Howell MD; Megan Benítez NP~ EXAMINATION: XR CHEST 2 VIEWS HISTORY: R05.3 - Chronic cough COMPARISON: Comparison is made with the prior examination dated 02/07/2025. FINDINGS: PA and lateral views of the chest are submitted. Again seen is prominence of the pulmonary vasculature, suggestive of congestion. There is no pleural effusion or pneumothorax. The heart is normal in size. The patient is status post aortic valve replacement. There is degenerative disc disease of the spine. XR/XR chest 2V IMPRESSION: Mild pulmonary vascular congestion. Electronically signed by: Henrique Barker MD 03/14/2025 11:36 AM EDT RP Dictated By: Henrique Barker MD Signed By: <Electronically signed by Henrique Barker MD in OV> 03/14/25 1136 DD/ 1127 TD/TT: 03/14/25 1130 Rn Pacu: Assessment & Plan Assessment & Plan (1) COPD (chronic obstructive pulmonary disease): Code(s): J44.9 - Chronic obstructive pulmonary disease, unspecified Category: Medical (2) Chronic cough: Code(s): R05.3 - Chronic cough Category: Medical Plan Aubrey reports resolution of cough with the use of Arnuity encouraged to continue. On exam patient with inspiratory bibasilar crackles and has been increasing diuretics inconsistently. He is aware to perform daily weights and monitor for BLE edema. Discussed need for further follow up with cardiology and discussed obtaining another CXR which patient was not interested in at this time. Reviewed signs and symptoms that warrant emergent evaluation. He has had prior CXR that revealed interstitial edema and discussed further evaluating with chest CT however he refused. All questions were answered and patient is in agreement of plan. Will follow up in 6-8 weeks or sooner if needed. Coding Level of Care Code Est Pt Level 4 (24407) Diagnoses COPD (chronic obstructive pulmonary disease) J44.9 Chronic cough R05.3
--- OUTSIDE RECORDS SUMMARY | 2025-04-08 12:07 | XMS_ITS | Encounter Summary ---
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; Gout, unspecified Social History [...] kidney disease, stage 3 unspecified (CMS/HCC) 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 140 mg/dL LAB CHEMISTRY METHOD 07/06/2024 12:37 PM [facility] Blood Venous blood specimen / Unknown Venipuncture / Unknown 07/06/2024 5:13 AM EST 07/06/2024 9:29 AM EST us Allison Mitchell MD LAB BLOOD ORDERABLES Final Resu lt [facility] [address] [place] [address], [place] [phone] * (ABNORMAL) Basic metabolic panel (07/06/2024 5:13 AM EST) Pathologist [facility] Sodium 144 133 - 145 mmol/L LAB CHEMISTRY METHOD 07/06/2024 12:39 PM [facility] Potassium 4.0 3.5 - 5.5 mmol/L LAB CHEMISTRY METHOD 07/06/2024 12:39 PM [facility] Chloride 106 96 - 110 mmol/L LAB CHEMISTRY METHOD 07/06/2024 12:39 PM [facility] CO2 29 21 - 32 mmol/L LAB CHEMISTRY METHOD 07/06/2024 12:39 PM [facility] Anion Gap 9 3 - 11 LAB CHEMISTRY METHOD 07/06/2024 12:39 PM [facility] Glucose 124(H) 70 - 100 mg/dL LAB CHEMISTRY METHOD 07/06/2024 12:39 PM EST [facility] BUN 73(H) 5 - 25 mg/dL LAB CHEMISTRY METHOD 07/06/2024 12:39 PM [facility] Creatinine 2.69(H) 0.70 - 1.30 mg/dL LAB CHEMISTRY METHOD 07/06/2024 12:39 PM [facility] eGFR 22(L) >=60 mL/min/1. 73m2 LAB CHEMISTRY METHOD 07/06/2024 12:39 PM EST [facility] Comment:Calculation based on the Chronic Kidney Disease Epidemiology Collaboration (CKD-EPI) equation refit without adjustment for race. BUN/Creatinine Ratio 27.1 LAB CHEMISTRY METHOD 07/06/2024 12:39 PM [facility] Calcium 8.8 8.5 - 10.5 mg/dL LAB CHEMISTRY METHOD 07/06/2024 12:39 PM [facility] Blood Venous blood specimen / Unknown Venipuncture / Unknown 07/06/2024 5:13 AM EST 07/06/2024 9:29 AM EST us Allison Mitchell MD LAB BLOOD ORDERABLES Final Resu lt [facility] [address] [place] [address], * (ABNORMAL) Complete blood count (07/06/2024 5:13 AM EST) WBC 7.9 4.8 - 10.8 K/mcL LAB HEMETOLOGY METHOD 07/06/2024 9:56 AM EST [facility] RBC 3.20(L) 4.50 - 5.50 M/mcL LAB HEMETOLOGY METHOD 07/06/2024 9:56 AM EST [facility] Hemoglobin 9.1(L) 13.5 - 17.5 g/dL LAB HEMETOLOGY METHOD 07/06/2024 9:56 AM EST [facility] Hematocrit 30.6(L) 42.0 - 54.0 % LAB HEMETOLOGY METHOD 07/06/2024 9:56 AM [facility] MCV 95.0 79.0 - 98.0 FL LAB HEMETOLOGY METHOD 07/06/2024 9:56 AM [facility] MCH 28.3 27.0 - 32.0 pcg LAB HEMETOLOGY METHOD 07/06/2024 9:56 AM EST [facility] MCHC 29.7(L) 32.0 - 37.0 g/dL LAB HEMETOLOGY METHOD 07/06/2024 9:56 AM [facility] RDW 17.6(H) 11.0 - 15.0 % LAB HEMETOLOGY METHOD 07/06/2024 9:56 AM [facility] Platelets 166 130 - 400 K/mcL LAB HEMETOLOGY METHOD 07/06/2024 9:56 AM EST [facility] MPV 13.2(H) 7.0 - 11.0 FL LAB HEMETOLOGY METHOD 07/06/2024 9:56 AM [facility] NRBC 0.0 <1.0 % LAB HEMETOLOGY METHOD 07/06/2024 9:56 AM [facility] NRBC Absolute 0.00 <0.10 K/mcL LAB HEMETOLOGY METHOD 07/06/2024 9:56 AM [facility] Blood Venous blood specimen / Unknown Venipuncture / Unknown 07/06/2024 5:13 AM EST 07/06/2024 9:29 AM EST us Allison Mitchell MD LAB BLOOD ORDERABLES Final Resu lt [facility] [address] [place] [address], [place] [phone] documented in this encounter Visit Diagnoses Diagnosis Chronic kidney disease, stage 3 unspecified (CMS/HCC V24, CMS/HCC V28) 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
--- OUTSIDE RECORDS SUMMARY | 2025-04-08 12:07 | XMS_ITS | Clinical Summary ---
Author Organization [facility] Address [address] [place] [phone] Phone Care Team Providers Care Criminal Justice Program Director Name Role Phone Chelsy Mora MD Primary Care Provider Allergies Active Allergy Reactions Criticality Noted Date Comments Latex 12/03/2021 Medications apixaban (Eliquis) 2.5 MG tablet Take 2.5 mg by mouth in the morning and 2.5 mg in the evening. Active terazosin (HYTRIN) 1 MG capsule Take 1 mg by mouth at bed time 06/10/20 22 Active simvastatin (ZOCOR) 20 MG tablet TAKE 1 TABLET BY MOUTH EVERY DAY IN THE EVENING 90 tablet 6 02/29/20 24 Active acetaminophen (TYLENOL) 500 MG tablet Take 500 mg by mouth every 6 (six) hours if needed for mild pain Active allopurinol (ZYLOPRIM) 100 MG tablet Take 100 mg by mouth 1 (one) time each day Active Wenden-3 Fatty Acids (Fish Oil) 1000 MG capsule delayed-releas e Take 1,000 mg by mouth 1 (one) time each day Active Ascorbic Acid (vitamin C) 500 MG tablet Take 500 mg by mouth 1 (one) time each day Active Cholecalcifero l (Vitamin D) 25 MCG (1000 UT) tablet Take by mouth Active metOLazone 5 MG tabletIndicati ons:Edema Take 5 mg by mouth 1 (one) time each day if needed (for weight gain >3 pounds in a day) Active torsemide (DEMADEX) 20 MG tablet TAKE 2 TABLETS (40 MG TOTAL) BY MOUTH IN THE MORNING AND 2 TABLETS (40 MG TOTAL) IN THE EVENING. 360 tablet 1 11/23/19 25 026 Active metoprolol succinate XL (TOPROL-XL) 100 MG 24 hr tablet Take 1 tablet (100 mg total) by mouth in the morning. 90 tablet 2 03/21/20 25 Active metoprolol succinate XL (TOPROL XL) 50 MG 24 hr tablet TAKE 1.5 TABLETS BY MOUTH EVERY DAY 135 tablet 4 08/05/19 24 025 Discontinued amLODIPine (NORVASC) 5 MG tablet TAKE 1 TABLET BY MOUTH TWICE A DAY 180 tablet 6 03/12/20 25 025 Discontinued(Me d List Maintenance) Active Problems Problem Noted Date Diagnosed Date [...] Encounters Date Type Department Care Team Description 03/21/2025 Refill [facility] [address] [facility] [address] [place] [phone] Tricia Taylor 03/09/2025 Refill [facility] [address] [facility] [address] [place] [phone] Craig Hurtado MD 03/04/2025 Orders Only [facility] [address] [facility] [address] [place] [address] Tricia Eric ARNP Stage 3 chronic kidney disease, not otherwise specified (HCC); Hypertension; Proteinuria, not otherwise specified; Vitamin D deficiency, not otherwise specified 02/08/2025 Orders Only [facility] [address] [facility] [address] [place] [phone] Carolina Latham MA from Last 3 Months Immunizations Immunization Administration [...] Office Visit [facility] [address] [phone] Leonides Morgan MD [address] [phone] Health Maintenance Due Date Last Done Comments Pneumococcal Vaccine: 50+ Years (1 of 2 - PCV) 11/01/1954 05/29/2023 Influenza Vaccine (#1) 2025 3, 05/21/2022, 04/04/2014 Pneumococcal Vaccine: Peds (0 to 5 Years) and At-Risk Patients (6 to 49 Years) Discontinued 05/29/2023 Hepatitis B Vaccine Aged Out No longe r eligible based on patient's age to complete this topic Insurance Medicare [facility] Medicare [facility] Care Teams Criminal Justice Program Director Relationship Specialty Start Date End Date Chelsy Mora MD [address] PCP - General Internal Medicine 12/03/21
--- OUTSIDE RECORDS SUMMARY | 2025-04-08 12:07 | XMS_ITS | Encounter Summary ---
Author Organization [facility] Address [address] [place] [address] Care Team Providers Care American Sign Language Teacher Name Role Phone Chelsy Mora MD Primary Care Provider Encounter Details Date Type Department Care Team (Late st Contact Info) Description 07/13/2024 Lab Requisition [facility] - Main Lab [address] [place] [address] Allison Mitchell MD [address] [place] [phone] Acute kidney failure, unspecified (CMS/HCC V24) Social History Tobacco Use Types Packs/Day Years [...] Procedure Name Priority Date/Time Associated Diagnosis Comments BASIC METABOLIC PANEL Routine 07/13/2024 6:51 AM EST Acute kidney failure, unspecified (CMS/HCC) documented in this encounter Results * (ABNORMAL) Basic metabolic panel (07/13/2024 6:51 AM EST) Sodium 145 133 - 145 mmol/L LAB CHEMISTRY METHOD 07/13/2024 1:37 PM EST [facility] Potassium 4.0 3.5 - 5.5 mmol/L LAB CHEMISTRY METHOD 07/13/2024 1:37 PM [facility] Chloride 107 96 - 110 mmol/L LAB CHEMISTRY METHOD 07/13/2024 1:37 PM [facility] CO2 30 21 - 32 mmol/L LAB CHEMISTRY METHOD 07/13/2024 1:37 PM [facility] Anion Gap 8 3 - 11 LAB CHEMISTRY METHOD 07/13/2024 1:37 PM [facility] Glucose 105(H) 70 - 100 mg/dL LAB CHEMISTRY METHOD 07/13/2024 1:37 PM [facility] BUN 51(H) 5 - 25 mg/dL LAB CHEMISTRY METHOD 07/13/2024 1:37 PM [facility] Creatinine 2.38(H) 0.70 - 1.30 mg/dL LAB CHEMISTRY METHOD 07/13/2024 1:37 PM [facility] eGFR 26(L) >=60 mL/min/1. 73m2 LAB CHEMISTRY METHOD 07/13/2024 1:37 PM [facility] Comment:Calculation based on the Chronic Kidney Disease Epidemiology Collaboration (CKD-EPI) equation refit without adjustment for race. BUN/Creatinine Ratio 21.4 LAB CHEMISTRY METHOD 07/13/2024 1:37 PM [facility] Calcium 8.9 8.5 - 10.5 mg/dL LAB CHEMISTRY METHOD 07/13/2024 1:37 PM [facility] Blood Venous blood specimen / Unknown Venipuncture / Unknown 07/13/2024 6:51 AM EST 07/13/2024 10:15 AM EST us Allison Mitchell MD LAB BLOOD ORDERABLES Final Resu lt [facility] [address] [place] [address], documented in this encounter Visit Diagnoses Diagnosis Acute kidney failure, unspecified (CMS/[facility] V24) Acute kidney failure, unspecified documented in this encounter Care Teams American Sign Language Teacher Relationship Specialty Start Date End Date Chelsy Mora MD [address] [place] [address] PCP - General Internal Medicine 03/20/21 documented as of this encounter
--- OUTSIDE RECORDS SUMMARY | 2025-04-08 12:07 | XMS_ITS | Clinical Summary ---
Author Organization [facility] [address] [place] [address] Address [address] [place] [address] Phone Care Team Providers Care Guide Cruise Name Role Phone Chelsy Mora MD Primary Care Provider Allergies No known active allergies Medications Eliquis 2.5 mg tabletIndications :Unspecified atrial fibrillation (CMS/HCC V24, CMS/HCC V28) TAKE 1 TABLET BY MOUTH TWICE A DAY 180 tablet 3 5 Active terazosin (HYTRIN) 1 mg capsuleIndication s:Essential (primary) hypertension TAKE 1 CAPSULE BY MOUTH AT BEDTIME 90 capsule 2 5 Active acetaminophen (TYLENOL) 500 mg tablet Take 1 tablet (500 mg total) by mouth every 6 (six) hours if needed for mild pain. Active allopurinoL (ZYLOPRIM) 100 mg tablet Take 1 tablet (100 mg total) by mouth 1 (one) time each day. Active omega 9-lik-ckx-fish oil (Fish OiL) 1,000 (120-180) mg capsule 1 capsule (1,000 mg total) 1 (one) time each day. Active metOLazone (ZAROXOLYN) 5 mg tablet Take 1 tablet (5 mg total) by mouth 1 (one) time each day if needed. Active metoprolol succinate (TOPROL-XL) 100 mg 24 hr tablet Take 1 tablet (100 mg total) by mouth 1 (one) time each day. Do not crush or chew. Active simvastatin (ZOCOR) 20 mg tablet Take 1 tablet (20 mg total) by mouth at bedtime. Active torsemide (DEMADEX) 20 mg tablet Take 2 tablets (40 mg total) by mouth 1 (one) time each day. Active ascorbic acid (VITAMIN C) 500 mg tablet Take 1 tablet (500 mg total) by mouth 1 (one) time each day. Active cholecalciferol (Vitamin D3) 25 mcg (1,000 unit) tablet Take 1 tablet (1,000 Units total) by mouth 1 (one) time each day. 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 Understands need to continue endocarditis prophylaxis. Had no significant obstructive disease at the time of his catheterization. Patient will continue with present follow-up. Permanent atrial fibrillation (CMS/HCC V24, CMS/ HCC V28) 12/01/2024 Assessment & Plan (12/01/2024 3:59 PM EDT): Patient with permanent atrial fibrillation remains rate controlled and chronically anticoagulated without bleeding issues Encounters Date Type Department Care Team Description 02/07/2025 Telephone [facility] [address] [place] [address] Cody Post MD from Last 3 Months Surgical History Surgery Date Site/Laterality Comments TOTAL KNEE ARTHROPLASTY Bilateral PROCEDURE: [place] ARTHRP KNE CONDYLE&PLATU MEDIAL&LAT COMPARTMENTS CHOLECYSTECTOMY PROCEDURE: HISTORICAL CHOLECYSTECTOMY OTHER SURGICAL HISTORY PROCEDURE: [place] LAPS SURG [id number] RPBIC RAD W/NRV SPARING ROBOT OTHER SURGICAL HISTORY PROCEDURE: [place] TRANSCATHETER TRANSAPICAL REPLACEMT AORTIC VALVE Medical History Medical History Date Comments Chronic kidney disease DX:Chroni c kidney disease Obstructive sleep apnea DX:Obstr uctive sleep apnea Gout DX:Gout Obesity DX:Obesity AMANDA (obstructive sleep apnea) DX :AMANDA (obstructive sleep apnea) Proteinuria DX:Proteinuria Pre-diabetes DX:Pre-diabetes HTN (hypertension) DX:HTN (hyper tension) Family History Medical History Relation Name Comments Coronary artery disease Neg Hx Social History Tobacco Use Types Packs/Day Years Used Date Smoking Tobacco: Former Cigarettes Smokeless Tobacco: Never Alcohol Use Standard Drinks/Week Comments Not Currently 0 (1 standard drink = 0.6 oz pur e alcohol) Sex and Gender Information Value Date Recorded Sex Assigned at Not on file Legal Sex Male 8:20 AM EST Gender Identity Not on file Sexual Orientation Not on file Obstetrics History Last Filed Vital Signs Vital Sign Reading Time Taken Comments Blood Pressure 122/70 12/01/2024 9:04 AM EDT Pulse 76 12/01/2024 9:04 AM EDT Temperature - - Respiratory Rate - - Oxygen Saturation 94% 12/01/2024 9:04 AM EDT Inhaled Oxygen Concentration - - Weight 108 kg (237 lb) 12/01/2024 9:04 AM EDT Height 172.7 cm (5' 8 ) 12/01/2024 9:04 AM EDT Body Mass Index 36.04 12/01/2024 9:04 AM EDT Plan of Treatment Health Maintenance Due Date Last Done Comments Cholesterol Screening (Lipid Panel) 07/07/2022 Falls Risk Assessment 07/07/2022 Medicare Annual Wellness Visit 07/07/2022 Social Influencers of Health Screening 07/07/2022 Depression Screening 08/04/2024 Zoster Vaccines (2 of 2) 02/19/2025 12/25/2024 COVID-19 Vaccine ( - season) 2025 05/29/2023, 06/11/2022, 05/10/2021, Additional history exists Influenza Vaccine (#1) 2025 , 05/29/2023, 05/21/2022, Additional history exists Hypertension/CHF/CAD Annual BMP Blood Test 07/13/2025 07/13/2024, 07/06/2024 DTaP,Tdap,and Td Vaccines (2 - Td or Tdap) 10/28/2033 10/29/2023 Pneumococcal Vaccine: 50+ Years Completed 05/29/2023 RSV Immunization Adult Patients Completed 12/25/2024 HIB Vaccines Aged Out No longer eligi ble based on patient's age to complete this topic HPV Vaccines Aged Out No longer eligi ble based on patient's age to complete this topic Hepatitis A Vaccines Aged Out No long er eligible based on patient's age to complete this topic Hepatitis B Vaccines Aged Out No long er eligible based on patient's age to complete this topic IPV Vaccines Aged Out No longer eligi ble based on patient's age to complete this topic MMR Vaccines Aged Out No longer eligi ble based on patient's age to complete this topic Meningococcal ACWY Vaccine Aged Out N o longer eligible based on patient's age to complete this topic Meningococcal B Vaccine Aged Out No l onger eligible based on patient's age to complete this topic RSV Immunization Patients Under 20 months Aged Out No longer eligible based on patient's age to complete this topic Varicella Vaccines Aged Out No longer eligible based on patient's age to complete this topic Procedures Procedure Name Priority Date/Time Associated Diagnosis Comments BASIC METABOLIC PANEL Routine 07/13/2024 6:51 AM EST Acute kidney failure, unspecified (CMS/HCC) from Last 3 Months or Most Recently Relevant to Health Maintenance Results * (ABNORMAL) Basic metabolic panel (07/13/2024 6:51 AM EST) Sodium 145 133 - 145 mmol/L LAB CHEMISTRY METHOD 07/13/2024 1:37 PM [facility] Potassium 4.0 3.5 - 5.5 mmol/L LAB CHEMISTRY METHOD 07/13/2024 1:37 PM [facility] Chloride 107 96 - 110 mmol/L LAB CHEMISTRY METHOD 07/13/2024 1:37 PM [facility] CO2 30 21 - 32 mmol/L LAB CHEMISTRY METHOD 07/13/2024 1:37 PM [facility] Anion Gap 8 3 - 11 LAB CHEMISTRY METHOD 07/13/2024 1:37 PM [facility] Glucose 105(H) 70 - 100 mg/dL LAB CHEMISTRY METHOD 07/13/2024 1:37 PM [facility] BUN 51(H) 5 - 25 mg/dL LAB CHEMISTRY METHOD 07/13/2024 1:37 PM [facility] Creatinine 2.38(H) 0.70 - 1.30 mg/dL LAB CHEMISTRY METHOD 07/13/2024 1:37 PM [facility] eGFR 26(L) >=60 mL/min/1. 73m2 LAB CHEMISTRY METHOD 07/13/2024 1:37 PM EST [facility] Comment:Calculation based on the Chronic Kidney Disease Epidemiology Collaboration (CKD-EPI) equation refit without adjustment for race. BUN/Creatinine Ratio 21.4 LAB CHEMISTRY METHOD 07/13/2024 1:37 PM EST [facility] Calcium 8.9 8.5 - 10.5 mg/dL LAB CHEMISTRY METHOD 07/13/2024 1:37 PM EST [facility] Blood Venous blood specimen / Unknown Venipuncture / Unknown 07/13/2024 6:51 AM EST 07/13/2024 10:15 AM EST us Allison Mitchell MD LAB BLOOD ORDERABLES Final Resu lt [facility] [address] [place] [address], from Last 3 Months or Most Recently Relevant to Health Maintenance Insurance MEDICARE [facility] Care Teams Guide Cruise Relationship Specialty Start Date End Date Chelys Mora MD [address] [place] [address] PCP - General Internal Medicine 03/20/21
== END 2025-04-08 11:44 | disposition home or self-care (01) ==
LOC: HO.HPSW 11:04
PROVIDERS: PCP Internal Medicine; Visit Provider Nurse Practitioner Family
DX: J44.9 Chronic obstructive pulmonary disease, unspecified (principal); R05.3 Chronic cough
CPT/HCPCS: 99214

== ENCOUNTER → 2025-04-08 11:03 | Outpatient (BNVA) | payer MEDICARE, SELFPAY | PROVIDERS: PCP Internal Medicine; Visit Provider Nurse Practitioner Family | DX: J44.9 Chronic obstructive pulmonary disease, unspecified (principal); R05.3 Chronic cough | CPT/HCPCS: 99212 ==

== ENCOUNTER 2025-07-15 11:26 | Outpatient (AMB) | payer MEDICARE, SELFPAY ==
[2025-07-15 11:27] VITALS: BP 98/52; PULSE 98; O2SAT 93; BMI 39.9
--- NOTE | 2025-07-15 11:27 | MHC.OFFVIS ---
Vital Signs 07/15/25 11:27 Height 5 ft 8 in Weight 262 lb 6 oz BMI 39.9 BP 98/52 L Blood Pressure Location Rt brachial Position Sitting Pulse 98 Pulse Source Pulse Oximeter Pulse Oximetry (%) 93 Oxygen Delivery Method Room Air Intake Visit Reasons: dyspnea Allergies No Known Allergies Allergy (Verified 07/15/25 11:30) HPI Comments Details: Aubrey is a pleasant 89-year-old male, former 10 pack year smoker, quit 30+ years ago with underlying mild COPD, hypertension, hyperlipidemia, severe aortic stenosis status post TAVR 2020, AMANDA on CPAP (PCP), atrial fibrillation on Eliquis and history of chronic hypoxic respiratory failure secondary to CHF 2023. He was referred by [facility] for pulmonary evaluation for ongoing dyspnea. He was recently started on metalozone PRN in addition to Torsemide BID and has noticed a decreasing trend in weight, however dyspnea continued as well as occasional dry cough. At the last visit he was started on Arnuity, avoiding LABA component due to cardiac history and has had resolution of cough, although no changes in dyspnea. Today patient reports he has been using an Arnuity inhaler daily but reports not seeing much difference in his symptoms with its use. He denies any cough, wheezing, chest tightness, or history of asthma. He has not had any visits to urgent care or the hospital since his last appointment. Pulmonology History - Diagnosis of mild COPD confirmed by a prior PFT - Reports shortness of breath despite daily use of Arnuity inhaler. - Denies cough, wheezing, and chest tightness. - Previous examination revealed crackles at the lung bases, which have since resolved. [facility] Social History (Reviewed 07/15/25 @ 11:30 by Dolores Booth [facility]) Patient Tobacco Use Status: Former Tobacco user Review of Systems Narrative Const Denies chills, Denies excessive sweating, Denies fever(s), Denies headache(s) and Denies night sweats Eyes Denies dry eyes, Denies irritation and Denies itchy eyes ENT Reports Normal hearing present, Denies headache(s), Denies nasal congestion, Denies nasal discharge, Denies post nasal drip and Denies sore throat Card Denies chest pain, Denies chest pain at rest, Denies chest pain with activity, Denies claudication, Denies leg edema, Denies orthopnea and Denies paroxysmal nocturnal dyspnea Resp Denies chest congestion, Denies cough, Denies excessive phlegm production, Denies pain on inspiration, Denies pain with cough, Denies stridor and Denies wheezing Musc Denies myalgias Neuro Reports Normal hearing present and Denies headache(s) Endo Denies excessive sweating Brando/Lymph Denies lymphadenopathy Aller/Immun Denies itchy eyes, Denies seasonal rhinorrhea and Denies wheezing Physical Exam Exam Exam: Vital Signs: Last Vital Signs Pulse 98 07/15/25 11:27 BP 98/52 L 07/15/25 11:27 Pulse Ox 93 07/15/25 11:27 Oxygen Delivery Method Room Air 07/15/25 11:27 BMI result Body Mass Index 39.9 Const General: cooperative, healthy appearing, comfortable, no acute distress, well developed and alert Nutritional Appearance: obese Orientation/consciousness: patient oriented x3 Limitations: no limitations HEENT Head: Yes normal to inspection, Yes normocephalic and Yes atraumatic Ears: hearing grossly normal bilaterally and external ears normal Eyes General: appearance normal, both eyes and all related structures Eyelids: Yes eyelids normal Sclerae: sclerae normal EOM: EOMs intact bilaterally Neck Neck: Yes normal visual inspection and Yes no lymphadenopathy Lymphatic: no lymphadenopathy noted Chest Chest palpation & inspection: normal inspection of the chest Resp Effort & Inspection: normal respiratory effort, able to speak in complete sentences, no audible wheezes, no cough, no stridor, not tachypneic, no tripod positioning and no use of accessory muscles Auscultation: diminished lung sounds Cardio Jugular venous distension: no JVD Rate: regular rate Rhythm: regular rhythm Skin Other: warm, dry General skin exam: no rashes or lesions noted Neuro General: patient oriented x3 Cranial nerves: Yes Normal hearing present Cognition (Neuro): normal cognition Gait exam (Neuro): Normal gait present Extrem General: Yes normal to inspection, Yes capillary refill normal, Yes no clubbing, cyanosis or edema and Yes no pedal edema Psych Appearance: grossly normal and well kempt Speech and movement: Normal speech and movement present and Clear speech present Affect: normal affect Attitude: cooperative Thought process: Normal thought process present Thought content: Normal thought content present Insight: Good insight present (Psych) Judgement: Good judgement present (Psych) Assessment & Plan Assessment & Plan (1) COPD (chronic obstructive pulmonary disease): Code(s): J44.9 - Chronic obstructive pulmonary disease, unspecified Category: Medical (2) Chronic cough: Code(s): R05.3 - Chronic cough Category: Medical Plan Discussed with the patient that his PFT demonstrated mild COPD. As he reported minimal benefit from his current Arnuity inhaler, recommended adding the Anoro inhaler, although will need to monitor for tachycardia and palpitations. Advised him to check the cost with his insurance, instructing him to call our office if it is too expensive so we can prescribe an alternative. At prior visit patient with bibasilar inspiratory crackles have resolved, now using metolazone PRN. However, highlighted that his blood pressure is now low at 90/52 mmHg. Advised him to monitor his blood pressure and to call his cardiology team for a possible medication adjustment if it remains low. He currently is asymptomatic. All questions were answered and patient is in agreement of plan. Will follow up in 6-8 weeks or sooner if needed. Patient was informed and verbally consented to the use of an ambient scribe for clinic note documentation during this visit. Medications: New umeclidinium-vilanterol 62.5-25 mcg/actuation (Anoro Ellipta) 1 inh inhalation DAILY 60 ea 3RF Coding Level of Care Code Est Pt Level 4 (93090) Diagnoses COPD (chronic obstructive pulmonary disease) J44.9 Chronic cough R05.3
== END 2025-07-15 11:50 | disposition home or self-care (01) ==
LOC: HO.HPSW 11:27
PROVIDERS: PCP Internal Medicine; Visit Provider Nurse Practitioner Family
DX: J44.9 Chronic obstructive pulmonary disease, unspecified (principal); R05.3 Chronic cough
CPT/HCPCS: 99214

== ENCOUNTER → 2025-07-15 11:26 | Outpatient (BNVA) | payer MEDICARE, SELFPAY | PROVIDERS: PCP Internal Medicine; Visit Provider Nurse Practitioner Family | DX: J44.9 Chronic obstructive pulmonary disease, unspecified (principal); R05.3 Chronic cough; Z87.891 Personal history of nicotine dependence | CPT/HCPCS: 99212 ==